=== PATIENT | male | born 2000 | race Two or more races ===

== ENCOUNTER 2022-03-07 01:27 | Emergency (ER) | payer MEDICAID, SELFPAY ==
[~2022-03-07] VITALS: Ht 172.7 cm; Wt 63.6 kg
[2022-03-07 01:28] VITALS: BP 118/75
== END 2022-03-07 02:50 | disposition left against medical advice (07) ==
LOC: M ED 01:27
DX: Z53.21 Procedure and treatment not carried out due to patient leaving prior to being seen by health care provider (principal)